=== PATIENT | female | born 1965 | race Caucasian/White ===

== ENCOUNTER 2021-06-18 06:06 | Day surgery (SDC) | payer OTHER ==
[2021-06-18] MEDS ORDERED: IBU600 MG PO (08:13)
== END 2021-06-18 12:20 | disposition home or self-care (01) ==
LOC: CIR.AMB 06:06
PROVIDERS: ATTEND Obstetrics & Gynecology Gynecology
DX: N84.0 Polyp of corpus uteri (principal)